=== PATIENT | female | born 1950 | race Caucasian/White ===

== ENCOUNTER 2018-07-30 07:31 | Day surgery (SDC) | payer MEDICARE ==
[~2018-07-30] VITALS: Ht 167.6 cm; Wt 107.0 kg
[2018-07-30] MEDS ORDERED: SODIUM CHLORIDE 0.9% 1,000 ML IV SCH (07:54)
[2018-07-30 08:27] VITALS: BP 115/71
[2018-07-30] MEDS ORDERED: PLEASE ENTER ALLERGIES MC SCH (08:30)
[2018-07-30] MEDS ORDERED: PLEASE ENTER HEIGHT AND WEIGHT MC SCH (08:30)
[2018-07-30] MEDS ORDERED: BUDESONIDE 0.5 MG/2 ML INHA ONE (08:45)
[2018-07-30] MEDS ORDERED: BUDESONIDE 0.5 MG/2 ML INHA INH STA (08:50)
[2018-07-30 10:20] LABS: INTERNATIONAL NORMALIZED RATIO 1.02 (0.93-1.1); PROTHROMBIN TIME 10.7 Seconds (9.6-11.5)
[2018-07-30] MEDS ORDERED: MIDAZOLAM 1 MG/ML, 5ML ONE ×2 (10:57→11:42)
[2018-07-30] MEDS ORDERED: FENTANYL PF 100 MCG/2ML ONE ×3 (10:57→11:42)
[2018-07-30] MEDS ORDERED: NALOXONE 1 MG/ML, 2ML ONE ×2 (10:58→11:43)
[2018-07-30] MEDS ORDERED: FLUMAZENIL 0.1 MG/1 ML, 5ML ONE ×2 (10:58→11:42)
== END 2018-07-30 15:05 | disposition home or self-care (01) ==
LOC: OUT 07:31
PROVIDERS: ATTEND Internal Medicine Nephrology
DX: I12.9 Hypertensive chronic kidney disease with stage 1 through stage 4 chronic kidney disease, or unspecified chronic kidney disease (principal); N18.3 Chronic kidney disease, stage 3 (moderate); E03.9 Hypothyroidism, unspecified; J44.9 Chronic obstructive pulmonary disease, unspecified; I48.91 Unspecified atrial fibrillation; E78.5 Hyperlipidemia, unspecified; I25.10 Atherosclerotic heart disease of native coronary artery without angina pectoris; F17.210 Nicotine dependence, cigarettes, uncomplicated; Z95.1 Presence of aortocoronary bypass graft; Z72.89 Other problems related to lifestyle; Z87.39 Personal history of other diseases of the musculoskeletal system and connective tissue; Z88.5 Allergy status to narcotic agent
CPT/HCPCS: 36415; 50200; 77012; 85610; 88300; 94640; J2250; J3010; J7030; J7626; J2310

== ENCOUNTER 2018-12-11 10:31 | Inpatient (IN) | payer OTHER ==
[~2018-12-11] VITALS: Ht 167.6 cm; Wt 93.0 kg
[~2018-12-11 10:31] MED LIST: ASCO500W4 PO; ASPI-496 PO; ATOR10TA9 PO; BUDE0.25 INH; FEXO-64 PO; FURO20TA3 PO; LEVO175T5 PO; MONT10TA9 PO; MULT1TAB9 PO; OMEG1CAP34 PO; POTASSIUM PO; PRED10TA14 PO; TIOT18CA INH; VITA1TAB68 PO
[2018-12-11] MEDS ORDERED: SODIUM CHLORIDE 0.9% 1,000 ML IV SCH (13:01)
[2018-12-11] MEDS ORDERED: ATROPINE OPHTH SOLN 1%, 5ML BC PRN (13:30)
[2018-12-11] MEDS ORDERED: PLEASE ENTER HEIGHT AND WEIGHT MC SCH (13:30)
[2018-12-11] MEDS ORDERED: MORPHINE SULFATE 4 MG/ML, 1ML IVPush ONE (13:30)
[2018-12-11] MEDS ORDERED: ONDANSETRON 2MG/ML, 2ML IVPush PRN (13:30)
[2018-12-11] MEDS ORDERED: LORazepam 2 MG/ML, 1ML IVPush ONE (13:30)
[2018-12-11] MEDS ORDERED: SCOPOLAMINE PATCH, 1.5MG PATCH.TD72 TD PRN (13:30)
[2018-12-11] MEDS ORDERED: MORPHINE SULFATE 4 MG/ML, 1ML IVPush PRN ×2 (13:30)
[2018-12-11] MEDS ORDERED: MORPHINE SULFATE 4 MG/ML, 1ML ONE (13:41)
[2018-12-11] MEDS: LORazepam 2 MG/ML, 1ML IVPush PRN ×3 (17:48→23:09)
[2018-12-11] MEDS: MORPHINE SULFATE 4 MG/ML, 1ML IVPush PRN ×4 (19:18→23:09)
[2018-12-12] MEDS: MORPHINE SULFATE 4 MG/ML, 1ML IVPush PRN ×2 (00:05→00:42)
[2018-12-12] MEDS: LORazepam 2 MG/ML, 1ML IVPush PRN (01:01)
== END 2018-12-12 02:50 | disposition expired | DRG 177 ==
LOC: CCU 13:18
PROVIDERS: ADMIT Internal Medicine; ATTEND Internal Medicine
DX: J69.0 Pneumonitis due to inhalation of food and vomit (principal); I63.9 Cerebral infarction, unspecified; J96.20 Acute and chronic respiratory failure, unspecified whether with hypoxia or hypercapnia; G93.41 Metabolic encephalopathy; G81.91 Hemiplegia, unspecified affecting right dominant side; Z99.11 Dependence on respirator [ventilator] status; E87.0 Hyperosmolality and hypernatremia; R47.01 Aphasia; E03.9 Hypothyroidism, unspecified; I73.9 Peripheral vascular disease, unspecified; Z51.5 Encounter for palliative care; J44.9 Chronic obstructive pulmonary disease, unspecified; R13.0 Aphagia; N18.9 Chronic kidney disease, unspecified; Z66 Do not resuscitate; Z87.891 Personal history of nicotine dependence; Z86.73 Personal history of transient ischemic attack (TIA), and cerebral infarction without residual deficits; Z88.5 Allergy status to narcotic agent; Z82.5 Family history of asthma and other chronic lower respiratory diseases
CPT/HCPCS: G0378; J2270; J2060